=== PATIENT | male | born 1965 | race Caucasian/White ===

== ENCOUNTER 2016-05-27 12:19 | Emergency (ER) | payer SELFPAY ==
[2016-05-27 12:33] VITALS: BP 188/85
--- NOTE | 2016-05-27 13:03 | UC ---
General HPI - HPI Summary HPI Summary: 50 year old male presents complaining of right sided facial numbness over the past week, patient woke up feeling as though the right side of his face was numb with limited mobility, patient had blurred vision, and felt confused. Patient states he has been experiencing intermittent headache located in the right hemisphere, described as sharp, lasting only a few seconds. Patient reports ataxia, feeling as though his heart rate is racing then greatly slows down, feels weak, and fatigued. Denies unilateral weakness, difficulty with gripping, or limping. No PMH, significant 1PPD x 30 years. - History of Current Complaint Chief Complaint: UCGeneralIllness Stated Complaint: FACE NUMB Time Seen by Provider: 05/27/16 12:37 Hx Obtained From: Patient Onset/Duration: Sudden Onset - Allergy/Home Medications Allergies/Adverse Reactions: Allergies Allergy/AdvReac Type Severity Reaction Status Date / Time Tadalafil [From Digistrivelis] AdvReac Severe rapid Verified 05/27/16 12:32 heart rate, dizziness Home Medications: Home Medications NK [No Home Medications Reported] 05/27/16 [History Confirmed 05/27/16] PMH/Surg Hx/FS Hx/Imm Hx Previously Healthy: Yes Endocrine History Of: Denies: Diabetes, Thyroid Disease Cardiovascular History Of: Denies: Cardiac Disorders, Hypertension, Pacemaker/ICD, Congestive Heart Failure Respiratory History Of: Denies: COPD, Asthma GI/ History Of: Denies: Gastroesophageal Reflux, Ulcer, Renal Disease Neurological History Of: Denies: CVA, Dementia, Seizures Psychological History Of: Denies: Anxiety, Depression, Bipolar Disorder, Schizophrenia, Post Traumatic Stress Disorder Other History Of: Negative For: Anticoagulant Therapy - Surgical History Surgical History: Yes Surgery Procedure, Year, and Place: APPENDECTOMY - Family History Known Family History: Positive: Cardiac Disease - Father- "valve disorder" - Social History Occupation: Employed Full-time Lives: With Family - With girlfriend Alcohol Use: Rare Substance Use Type: Marijuana Substance Use Comment - Amount & Last Used: rare Smoking Status (MU): Heavy Every Day Tobacco Smoker Type: Cigarettes Amount Used/How Often: 1 PPD Have You Smoked in the Last Year: Yes Household Exposure Type: Cigarettes Review of Systems Constitutional: Fatigue, Other - Light-headed Skin: Negative Eyes: Blurred Vision ENT: Negative Respiratory: Negative Cardiovascular: Palpitations - Alternating palpitations with "slow heart rate" Gastrointestinal: Negative Genitourinary: Negative Motor: Weakness - All over body weakness., Other - Patient reports ataxia Neurovascular: Negative Musculoskeletal: Negative Neurological: Weakness, Numbness - Right sided facial numbness Psychological: Negative All Other Systems Reviewed And Are Negative: Yes Physical Exam Triage Information Reviewed: Yes Completion Of Physical Exam Limited Due To: Altered Mental Status Appearance: Well-Appearing Vital Signs: Initial Vital Signs Temp 99 F 05/27/16 12:28 Pulse 88 05/27/16 12:28 Resp 18 05/27/16 12:28 BP 188/85 05/27/16 12:28 Pulse Ox 100 05/27/16 12:28 Vital Signs Reviewed: Yes Eyes: Positive: Conjunctiva Clear ENT: Positive: Hearing grossly normal, Pharynx normal, TMs normal. Negative: Trismus Dental Exam: Normal Neck: Positive: Supple, Nontender, No Lymphadenopathy. Negative: Nuchal Rigidity Respiratory: Positive: Chest non-tender, Lungs clear, Normal breath sounds, No respiratory distress, No accessory muscle use Cardiovascular: Positive: RRR, No Murmur, Pulses Normal Abdomen Description: Positive: Nontender, No Organomegaly, Soft Bowel Sounds: Positive: Present Musculoskeletal: Positive: Strength Intact, ROM Intact, ROM Limited @ - Right sided facial movements Neurological: Positive: Alert Psychological Exam: Normal Skin Exam: Normal - Additional Comments Negative: ataxia, pronator drift, and Rhomberg observed. Strength equal bilaterally, pin-point position intact. Course/Dx - Differential Dx - Multi-Symptom Provider Diagnoses: R facial nerve palsy. palpitations. headache. dizziness - Physician Notifications Discussed Patient Care With: Mleisa ESPINO. Instructed by Provider To: Will See In ED Discharge - Discharge Plan Condition: Good Disposition: TRANS HIGHER LVL OF CARE FAC
== END 2016-05-27 13:19 | disposition short-term general hospital (02) ==
LOC: UCEAST 12:19
DX: G51.0 Bell's palsy (principal); R00.2 Palpitations; R51 Headache; R42 Dizziness and giddiness; Z88.8 Allergy status to other drugs, medicaments and biological substances; F12.90 Cannabis use, unspecified, uncomplicated; F17.210 Nicotine dependence, cigarettes, uncomplicated
CPT/HCPCS: 93005; 99213; G0463

== ENCOUNTER 2016-05-27 13:43 | Emergency (ER) | payer SELFPAY ==
--- NOTE | 2016-05-27 15:23 | ED ---
Neurological HPI - HPI Summary HPI Summary: Pt here w/ Rt sided facial droop x 1 week - constant. Noticed upon waking one morning. Denies alleviating and exacerbating factors. Described as feeling like he has "Novocaine" on this side of his face. Sharp 5/10 pain to Rt parietal region which started at the same time as facial sx - intermittent. No alleviating nor exacerbating factors. No previous hx. Difficulty sleeping as eye won't close - eye d/c leading to dryness. Difficulty eating with Rt side of mouth so has been chewing on Lt side. Denies choking. Has had a few episodes of mild drooling from Rt side of mouth. Occasional blurred vision. Denies fever, chills, weight changes, nightsweats, fatigue currently but does admit he just got over a head cold. Was sent by earlier today and sent here. - History of Current Complaint Chief Complaint: EDNeurologicalDeficit Stated Complaint: RULE OUT STROKE Time Seen by Provider: 05/27/16 14:20 Hx Obtained From: Patient Pain Intensity: 0 - Allergy/Home Medications Allergies/Adverse Reactions: Allergies Allergy/AdvReac Type Severity Reaction Status Date / Time Tadalafil [From Cialis] AdvReac Severe rapid Verified 05/27/16 12:32 heart rate, dizziness PMH/Surg Hx/FS Hx/Imm Hx Previously Healthy: Yes Endocrine/Hematology History: Denies: Hx Anticoagulant Therapy, Hx Blood Disorders, Hx Diabetes, Hx Systemic Lupus Erythematosus, Hx Thyroid Disease, Autoimmune Disease - no known h/o Lyme but outdoors alot Cardiovascular History: Reports: Hx Hypertension - ? Denies: Hx Congestive Heart Failure, Hx Pacemaker/ICD, Other Cardiovascular Problems/Disorders - DENIES Respiratory History: Denies: Hx Asthma, Hx Chronic Obstructive Pulmonary Disease (COPD) Comment Only: Other Respiratory Problems/Disorders - DENIES GI History: Denies: Hx Gastroesophageal Reflux Disease, Hx Ulcer History: Denies: Hx Dialysis, Hx Renal Disease Musculoskeletal History: Denies: Hx Rheumatoid Arthritis Neurological History: Denies: Hx Dementia, Hx Headaches, Hx Migraine, Hx Seizures Psychiatric History: Denies: Hx Anxiety, Hx Depression, Hx Schizophrenia, Hx Bipolar Disorder, Hx Substance Abuse - Cancer History Hx Chemotherapy: No - Surgical History Surgery Procedure, Year, and Place: APPENDECTOMY - Immunization History Date of Tetanus Vaccine: unsure Date of Influenza Vaccine: none Infectious Disease History: No Infectious Disease History: Denies: Hx Hepatitis, Hx Human Immunodeficiency Virus (HIV), Traveled Outside the [place] in Last 30 Days - Family History Known Family History: Positive: Cardiac Disease - Father- "valve disorder", 84 y.o., Other - mom- lung CA at 69 y.o.; brother w/ stomach CA - Social History Lives: With Family Alcohol Use: None Substance Use Type: Reports: Marijuana Substance Use Comment - Amount & Last Used: rare Smoking Status (MU): Current Every Day Smoker Type: Cigarettes Amount Used/How Often: 1 PPD x 30 years Have You Smoked in the Last Year: Yes Review of Systems Constitutional: Negative Eyes: Other - see HPI ENT: Negative Negative: Palpitations, Chest Pain Negative: Shortness Of Breath Gastrointestinal: Negative Positive: no symptoms reported Musculoskeletal: Negative Skin: Negative Neurological: Other - see HPI Psychological: Normal All Other Systems Reviewed And Are Negative: Yes Physical Exam Triage Information Reviewed: Yes Vital Signs On Initial Exam: Initial Vitals BP 135/80 05/27/16 13:58 Vital Signs Reviewed: Yes Appearance: Positive: Well-Appearing, No Pain Distress, Well-Nourished Skin: Positive: Warm, Dry - No erythema, no ecchymosis, no vesicles over affected area on face; benign apearing flesh colored, soft pedunculated skin tag over Rt occipital region - NTTP - no erythema, no d/c (pt reports this is an old scar) Head/Face: Positive: Normal Head/Face Inspection - sinuses NTTP, Other - asymmetric smile, lower eyelid and forehead w/ drooping on Rt side - no tha drooling, intermittent watery Rt eye d/c Eyes: Positive: Normal, EOMI, MADALYN, Conjunctiva Clear. Negative: Conjunctiva Inflammed, Discharge ENT: Positive: Hearing grossly normal, Pharynx normal - uvual midline w/ equal rise, TMs normal. Negative: Nasal congestion, Nasal drainage Neck: Positive: Supple, Nontender Respiratory/Lung Sounds: Positive: Clear to Auscultation, Breath Sounds Present. Negative: Stridor Cardiovascular: Positive: Normal, RRR - no carotid bruits appreciated, S1, S2. Negative: Murmur, Rub Abdomen Description: Positive: Nontender, Soft Bowel Sounds: Positive: Present Musculoskeletal: Positive: Normal, Strength/ROM Intact Neurological: Positive: Sensory/Motor Intact, Alert, Oriented to Person Place, Time, CN Intact II-III - EXCEPT motor of CN VII, Reflexes Intact Psychiatric: Positive: Normal - Roderick Coma Scale Coma Scale Total: 15 Diagnostics - Vital Signs Vital Signs Temp Pulse Resp BP Pulse Ox 05/27/16 14:06 100 F 66 18 135/80 97 05/27/16 14:00 66 98 05/27/16 13:58 135/80 - Laboratory Lab Statement: Any lab studies that have been ordered have been reviewed, and results considered in the medical decision making process. NIH Scale - NIH Scale Level of Consciousness: Alert/Keenly Responsive Ask Patient the Month and His/Her Age: Both Correct Ask Pt to Open/Close Eyes and Disability Representative/Release Non-Paretic Hand: Both Correctly Best Gaze (Only Horizontal Eye Movement): Normal Visual Field Testing: No Visual Loss Facial Paresis-Pt to Smile & Close Eyes or Grimace Symmetry: Minor Paralysis Motor Function - Right Arm: No Drift-Holds 10 Seconds Motor Function - Left Arm: No Drift-Holds 10 Seconds Motor Function - Right Leg: No Drift-Holds 10 Seconds Motor Function - Left Leg: No Drift-Holds 10 Seconds Limb Ataxia-Must be out of Proportion to Weakness Present: Absent Sensory (Use Pinprick to Test Arms/Legs/Trunk/Face): Normal Best Language (Describe Picture, Name Items): No Aphasia Dysarthria (Read Several Words): Normal Extinction and Inattention: No Abnormality Total Score: 1 Course/Dx - Course Course Of Treatment: 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 Reviewed danger s/sx of when to return to ED. Pt and female home staging specialist voice understanding. - Diagnoses Provider Diagnoses: Aguilar's palsy Discharge - Discharge Plan Condition: Stable Disposition: HOME Prescriptions: predniSONE TAB* [Deltasone TAB*] 60 mg PO DAILY #28 tab Patient Education Materials: Aguilar Palsy (ED) Referrals: lAverto Cespedes MD [Primary Care Provider] - Additional Instructions: Follow-up with PCP next week. You may benefit from physical therapy - your PCP may arrange this for you. You also mentioned a possible h/o Lyme as you are outdoors quite a bit. Without acute lyme infection symptoms today, testing was not performed however this may be assessed through your PCP's office as well. *If you develop fever, chills, weakness, vomiting, difficulty breathing/ swallowing, severe headache, change in vision, return to ED
[2016-05-27 16:17] VITALS: BP 131/76
--- NOTE | 2016-07-15 11:00 | ED ---
Gisella Skinner Matthew, scribed for Claudia Randolph MD on 05/27/16 at 1417 . Progress - Progress Note Progress Note: A 50 y/o male presents to the ED with right sided facial drooping since 5 days ago. The patient has associated right neck and arm pain. He also c/o of a parietal headache. He has decreased hearing in the right ear. PE No UE or LE pronator drift The patient is A&Ox3 Heel to [place] normal mild right trapezius tenderness Course/Dx - Diagnoses Provider Diagnoses: Aguilar's palsy The documentation as recorded by the urbanibGisella stone Matthew accurately reflects the service I personally performed and the decisions made by , Claudia Randolph MD.
== END 2016-05-27 16:31 | disposition home or self-care (01) ==
LOC: ED 13:43
DX: G51.0 Bell's palsy (principal); H53.8 Other visual disturbances; F17.210 Nicotine dependence, cigarettes, uncomplicated
CPT/HCPCS: 99283

== ENCOUNTER 2018-10-04 12:26 | Emergency (ER) | payer SELFPAY ==
[2018-10-04] MEDS ORDERED: Tetan/Diph/Pertus SYR(Tdap)* 0.5 ML SYR(BOOSTRIX) use SYR IM ONE (12:42)
[2018-10-04] MEDS ORDERED: Lidocaine 1%* 5 ML VIAL INJ ONE ×2 (12:43→13:31)
[2018-10-04] MEDS ORDERED: Lidocaine 1%* 5 ML VIAL ONE (13:31)
[2018-10-04 13:36] VITALS: BP 121/71
--- NOTE | 2018-10-04 14:21 | ED ---
Laceration/Wound HPI - HPI Summary HPI Summary: Patient is a 53-year-old male who presents emergency department for left hand laceration occurred just prior to arrival. Patient states he was working on a roof slipped and caught his left hand on a piece of metal on the roof. Patient states that somebody was able to get from a ladder and he did not fall from the roof and was able to climb down the ladder to the ground. Patient denies head, neck, chest or abdominal injury. He is unaware of his last tetanus immunization. He has no significant past medical history. Symptoms are mild in severity. Touching left him makes symptoms worse. Nothing makes symptoms better. Patient noted to be feeling faint upon arrival states he does not do well with injuries were needles. - History of Current Complaint Stated Complaint: MULTIPLE LEFT HAND LACS PER PT Time Seen by Provider: 10/04/18 12:42 Hx Obtained From: Patient Pain Intensity: 0 Pain Scale Used: 0-10 Numeric - Allergy/Home Medications Allergies/Adverse Reactions: Allergies Allergy/AdvReac Type Severity Reaction Status Date / Time tadalafil AdvReac Severe rapid Verified 10/04/18 12:49 heart rate, dizziness PMH/Surg Hx/FS Hx/Imm Hx Previously Healthy: Yes Endocrine/Hematology History: Denies: Hx Anticoagulant Therapy, Hx Blood Disorders, Hx Diabetes, Hx Systemic Lupus Erythematosus, Hx Thyroid Disease Cardiovascular History: Reports: Hx Hypertension - ? Denies: Hx Congestive Heart Failure, Hx Pacemaker/ICD, Other Cardiovascular Problems/Disorders - DENIES Respiratory History: Denies: Hx Asthma, Hx Chronic Obstructive Pulmonary Disease (COPD) Comment Only: Other Respiratory Problems/Disorders - DENIES GI History: Denies: Hx Gastroesophageal Reflux Disease, Hx Ulcer History: Denies: Hx Dialysis, Hx Renal Disease Musculoskeletal History: Denies: Hx Rheumatoid Arthritis Neurological History: Denies: Hx Dementia, Hx Headaches, Hx Migraine, Hx Seizures Psychiatric History: Denies: Hx Anxiety, Hx Depression, Hx Schizophrenia, Hx Bipolar Disorder, Hx Substance Abuse - Cancer History Hx Chemotherapy: No - Surgical History Surgery Procedure, Year, and Place: APPENDECTOMY - Immunization History Date of Tetanus Vaccine: unsure Date of Influenza Vaccine: none Infectious Disease History: No Infectious Disease History: Denies: Hx Hepatitis, Hx Human Immunodeficiency Virus (HIV), Traveled Outside the [place] in Last 30 Days - Family History Known Family History: Positive: Cardiac Disease - Father- "valve disorder", 84 y.o., Other - mom- lung CA at 69 y.o.; brother w/ stomach CA - Social History Occupation: Employed Full-time Lives: With Family Alcohol Use: None Substance Use Type: Reports: Marijuana Substance Use Comment - Amount & Last Used: rare Smoking Status (MU): Current Every Day Smoker Type: Cigarettes Amount Used/How Often: 1 PPD x 30 years Have You Smoked in the Last Year: Yes Review of Systems Positive: Other - laceration left hand Positive: Other - laceration left hand Neurological: Negative Negative: Weakness, Paresthesia, Numbness All Other Systems Reviewed And Are Negative: Yes Physical Exam Triage Information Reviewed: Yes Vital Signs On Initial Exam: Initial Vitals Temp Pulse Resp BP Pulse Ox 98.0 F 93 16 166/109 94 10/04/18 12:31 10/04/18 12:31 10/04/18 12:31 10/04/18 12:31 10/04/18 12:31 Vital Signs Reviewed: Yes Appearance: Positive: Well-Appearing - Pt. sitting on side of bed, feeling woozy. present. Skin: Positive: Warm, Dry Head/Face: Positive: Normal Head/Face Inspection Eyes: Positive: Normal, EOMI, MADALYN Neck: Positive: Supple Musculoskeletal: Positive: Other - 4 cm L shaped full thickness laceration noted to the left hypothenar eminence. Good radial pulse. Full ROM of digits with flexion and extension. No bony tenderness. Superifical flap, small laceration noted to distal 3rd digit. Psychiatric: Positive: Affect/Mood Appropriate Procedures - Laceration/Wound Repair 1 Location: upper extremity Description: Irregular Anesthesia: 1.0%, Lido Length, Depth and Shape: 4 cm L shaped Betadine Prep?: No - hibiclens. Irrigated w/ Saline (ccs): 500 Laceration/Wound Explored: clean, no foreign body removed Closure: Single Layer Suture Type: Nylon Number of Sutures: 6 Layer Closure?: No Sterile Dressing Applied?: Yes Diagnostics - Vital Signs Vital Signs Temp Pulse Resp BP Pulse Ox 10/04/18 14:07 98.3 F 61 16 121/71 98 10/04/18 13:32 63 121/71 96 10/04/18 13:02 65 125/86 95 10/04/18 13:00 66 94 10/04/18 12:48 72 118/74 96 10/04/18 12:36 89 95 10/04/18 12:32 89 166/109 95 10/04/18 12:31 98.0 F 93 16 166/109 94 - Laboratory Lab Statement: Any lab studies that have been ordered have been reviewed, and results considered in the medical decision making process. Laceration Repair Course/Dx - Course Course Of Treatment: Patient presenting for hand laceration. Tetanus was updated. Wound was extensively irrigated, cleaned and closed as noted above. Tetanus was updated. We'll place patient prophylactically on Keflex. Suture removal in 10-14 days. Keep wound clean and dry. Tylenol or Motrin for pain as directed. Ice and elevate intermittently. To return to the ER for redness, swelling or drainage from wound. Pt. understands and agrees with plan. - Differential Dx Differental Diagnoses: Abrasion, Foreign Body, Hematoma, Laceration, Tendon Laceration - Clinical Impression Provider Diagnoses: Hand laceration Discharge - Sign-Out/Discharge Documenting (check all that apply): Patient Departure Patient Received Moderate/Deep Sedation with Procedure: No - Discharge Plan Condition: Improved Disposition: HOME Prescriptions: Cephalexin CAP* [Keflex CAP*] 500 mg PO BID #14 cap Patient Education Materials: Care For Your Stitches (ED), Laceration (ED) Referrals: [facility] [[facility]] Alverto Cespedes MD [Primary Care Provider] - Additional Instructions: Suture removal in 10-14 days Keep wound clean and dry Tylenol or Motrin for pain as directed Elevate and ice hand intermittently Return to ER for redness, swelling, drainage, increased pain, or if concerned - Billing Disposition and Condition Condition: IMPROVED Disposition: Home
== END 2018-10-04 14:07 | disposition home or self-care (01) ==
LOC: ED 12:26
DX: S61.412A Laceration without foreign body of left hand, initial encounter (principal); Z23 Encounter for immunization; F17.210 Nicotine dependence, cigarettes, uncomplicated; W26.8XXA Contact with other sharp object(s), not elsewhere classified, initial encounter
CPT/HCPCS: 12002; 90471; 90715; 96372; 99283

== ENCOUNTER 2018-10-17 15:44 | Emergency (ER) | payer SELFPAY ==
[2018-10-17 16:07] VITALS: BP 117/64
--- NOTE | 2018-10-17 16:17 | UC ---
HPI Wound/Suture Re-check - HPI Summary HPI Summary: Cut his hand on a roof 10/04/18. Needs suture removal No problems with the wound. - History Of Current Complaint Chief Complaint: UCLaceration Stated Complaint: STITCHES REMOVAL Hx Obtained From: Patient Onset/Duration: Sudden Onset, Lasting Days - 12 Severity: Mild Pain Intensity: 0 Hands: 1 - Wound with 7 stitches - Allergies/Home Medications Allergies/Adverse Reactions: Allergies Allergy/AdvReac Type Severity Reaction Status Date / Time tadalafil AdvReac Severe rapid Verified 10/17/18 16:07 heart rate, dizziness Home Medications: Home Medications NK [No Home Medications Reported] 10/17/18 [History Confirmed 10/17/18] PMH/Surg Hx/FS Hx/Imm Hx Previously Healthy: Yes Other History Of: Negative For: Anticoagulant Therapy - Surgical History Surgical History: Yes Surgery Procedure, Year, and Place: APPENDECTOMY - Family History Known Family History: Positive: Cardiac Disease - Father- "valve disorder", 84 y.o., Diabetes, Other - mom- lung CA at 69 y.o.; brother w/ stomach CA - Social History Occupation: Employed Full-time Lives: With Family Alcohol Use: None Substance Use Type: Marijuana Substance Use Comment - Amount & Last Used: rare Smoking Status (MU): Current Every Day Smoker Type: Cigarettes Amount Used/How Often: 1 PPD x 30 years Have You Smoked in the Last Year: Yes Household Exposure Type: Cigarettes Review of Systems All Other Systems Reviewed And Are Negative: Yes Skin: Positive: Other - left hand wound Physical Exam Triage Information Reviewed: Yes Appearance: Well-Appearing, No Pain Distress, Well-Nourished Vital Signs: Initial Vital Signs Temp 98.5 F 10/17/18 16:04 Pulse 60 10/17/18 16:04 Resp 16 10/17/18 16:04 BP 117/64 10/17/18 16:04 Pulse Ox 98 10/17/18 16:04 Vital Signs Reviewed: Yes Eyes: Positive: Conjunctiva Clear Neck exam: Normal Respiratory Exam: Normal Cardiovascular Exam: Normal Musculoskeletal Exam: Normal Neurological Exam: Normal Psychological Exam: Normal Skin: Positive: Other - wound healing well. Procedures - Procedure Summary Procedure Summary: 7 simple sutures removed without difficulty Course/Dx - Differential Dx - Laceration/Wound Differential Diagnoses: Dehiscence, Healing Wound, Suture Removal - Diagnosis Provider Diagnosis: Healing wound Discharge - Sign-Out/Discharge Documenting (check all that apply): Patient Departure All imaging exams completed and their final reports reviewed: No Studies - Discharge Plan Condition: Stable Disposition: HOME Patient Education Materials: Stitches Removal (ED) Referrals: No Primary Care Phys,NOPCP [Primary Care Provider] - Additional Instructions: Smoking Cessation Tricks. 1. Cut down by 1 cigarette per day every 2-3 days. Write the number of smokes for that day on the calendar. 2. Identify triggers to smoking: after meals, on the phone, in the car, with coffee, on breaks at work, etc. 3. Formulate a plan with a behavior to replace the smoking. Fireballs in the car , doodle pad on the phone, flavored creamer for the coffee, go for a walk after a meal or on break at work. 4. For stress smokes do deep breathing relaxation. Breath deep in through the nose hold the breath in for a few seconds then breath out slowly through the mouth. - Billing Disposition and Condition Condition: STABLE Disposition: Home
== END 2018-10-17 16:29 | disposition home or self-care (01) ==
LOC: UCCORT 15:44
DX: Z48.02 Encounter for removal of sutures (principal); F17.210 Nicotine dependence, cigarettes, uncomplicated
CPT/HCPCS: 99211; G0463